=== PATIENT | male | born 1950 | race Caucasian/White ===

== ENCOUNTER → 2019-05-15 | Outpatient (CLI) | payer MEDICARE, OTHER, SELFPAY ==
[2019-04-29 13:48] VITALS: BMI 43.7
--- NOTE | 2019-05-15 13:14 | RAD_ITS ---
STUDY: X-RAY - LUMBAR SPINE REASON FOR EXAM: Male, 69 years old. LBP TECHNIQUE: 4 view(s) of the lumbar spine were obtained. COMPARISON: None FINDINGS: There is a AP view and 3 lateral views. AP view demonstrates levoscoliosis centered at the rudimentary ribs at the level of T12. There is multilevel disc space narrowing endplate sclerosis spondylosis. The neutral view demonstrates anterolisthesis at the level of L4-L5 that may measure up to 6.7 mm. On the extension view measures 6.4 mm an approximately the same on flexion. RAD/L/S Spine Comp/w Bending Views IMPRESSION: Approximately 6.5 mm anterolisthesis with degenerative change at L4-L5 without significant evidence of instability on flexion and extension. There is multilevel degenerative change of the lumbar spine. Electronically Signed: Jessi Schilling MD at 18:05 EST Tel , Service support ,
== END | disposition home or self-care (01) ==
PROVIDERS: Referring Provider Physician Assistant; Visit Provider Physician Assistant
DX: M54.5 Low back pain (principal)
CPT/HCPCS: 72114

== ENCOUNTER → 2020-11-17 13:39 | Outpatient (CLI) | payer MEDICARE, OTHER, SELFPAY ==
[2020-10-10 12:58] VITALS: BMI 43.7
--- NOTE | 2020-11-17 13:42 | CT_ITS ---
STUDY: CT LUMBAR SPINE WITHOUT CONTRAST REASON FOR EXAM: Male, 70 years old. Low back and left leg pain. RADIATION DOSAGE (If Supplied By Facility): CTDIvol = ( 61.40 ) mGy, DLP = ( 1830.17 ) mGycm TECHNIQUE: The patient was scanned in a multi detector CT scanner. High resolution transaxial imaging was performed. Images were obtained from L1 to S1 vertebral level. Sagittal and coronal images were reconstructed. Individualized dose optimization techniques were used for this CT. COMPARISON: Comparison is made with prior radiographs dated 10/10/2020. FINDINGS: Normal lumbar lordosis. Minimal levoscoliosis. Normal vertebrae of the lumbar spine. L1-2: There is a marked degree of disc space narrowing and disc degeneration with anterior osteophyte formation worse on the right side. Moderate degree of right neural foraminal stenosis. L2-3: Mild degree of disc space narrowing and disc degeneration. Moderate degree of facet joint osteoarthritis and hypertrophy with moderate bilateral neural foraminal stenosis. Minimal degree of central canal stenosis. L3-4: Moderate degree of disc space narrowing and disc degeneration. Moderate degree of bilateral neural foraminal stenosis as well as moderate degree of central canal stenosis due to the facet joint hypertrophy and ligamentum flavum hypertrophy. L4-5: Mild degree of the disc space narrowing. Mild anterior listhesis of L4 on L5. Marked degree of facet joint osteoarthritis and hypertrophy and diffuse posterior disc bulge causing a moderate degree of bilateral neural foraminal stenosis. Moderate to marked degree of central canal stenosis. L5-S1: Mild degree of disc space narrowing. Facet joint osteoarthritis. Mild degree of diffuse posterior disc bulge Atherosclerotic calcification of the abdominal aorta and iliac arteries. CT/Spine Lumbar without Contrast IMPRESSION: Multilevel degenerative changes, as described above. This is worse at the L3-L4 and L4-L5 levels. Electronically Signed: Jack Mueller MD at 14:54 EDT , Service support ,
== END ==
PROVIDERS: Referring Provider Orthopaedic Surgery; Visit Provider Orthopaedic Surgery
DX: M43.10 Spondylolisthesis, site unspecified (principal); M47.816 Spondylosis without myelopathy or radiculopathy, lumbar region
CPT/HCPCS: 72131

== ENCOUNTER → 2021-08-03 | Outpatient (CLI) | payer MEDICARE, OTHER, SELFPAY ==
--- NOTE | 2021-08-03 09:49 | STRESSREP ---
Stress Test Report Date: 08-03-2021 Procedure: Pharmacologic stress nuclear imaging study Indications: Shortness of breath/dyspnea on exertion; coronary artery calcification; paroxysmal atrial fibrillation; hypertension Consent: Per the patient Procedure: The patient underwent pharmacologic (Regadenoson 0.4mg ) evaluation with a peak heart rate of 98 beats per minute (66%predicted maximal heart rate) and a peak blood pressure of 162/98 mmHg. The baseline ECG demonstrated sinus rhythm; right bundle branch block pattern (rate related). The peak pharmacologic ECG demonstrated at a slower ventricular rate underlying sinus rhythm without the right bundle branch block pattern without acute ECG changes with a rare PVC. There was a rare PVC during infusion and recovery as well as during recovery at a higher ventricular rate the reappearance of sinus rhythm with a right bundle branch block pattern. There was no complaint of chest discomfort during pharmacologic infusion or recovery. The examination was discontinued secondary to completion of protocol. Impression: 1. Pharmacologic (Regadenoson) evaluation 2. Peak pharmacologic ECG with sinus rhythm without acute ECG changes and without the right bundle branch block pattern (appears to occur at an accelerated heart rate being compatible with a rate related bundle branch block pattern). 3. There was a rare PVC during infusion and recovery and at higher ventricular rates the appearance of sinus rhythm with a right bundle branch block pattern. 4. Nuclear images pending Myocardial perfusion imaging study: Technique: The patient was injected with 14.9 millicuries of technetium 99m Cardiolite and subsequently rest SPECT Cardiolite nuclear imaging was obtained in the horizontal long, vertical long, and short axis views. The patient underwent pharmacologic (Regadenoson) evaluation with a peak heart rate of 98 beats per minute (66% percent predicted maximal heart rate) and a peak blood pressure of 162/98 mmHg. The patient was injected with 44.8 millicuries of technetium 99m Cardiolite and subsequently stress SPECT Cardiolite nuclear imaging was obtained in the horizontal long, vertical long, and short axis views. A gated Cardiolite study at peak stress was obtained. Interpretation: Rest and stress SPECT Cardiolite nuclear imaging status post realignment, normalization, and attenuation correction demonstrate the appearance of an area of diminished myocardial perfusion/tracer uptake in portions of the mid inferolateral segments without significant change between rest and stress. There are similar type findings on the resting and stress polar map images. There is end systolic thickening and brightening. The gated Cardiolite study demonstrates myocardial thickening and inward wall motion. The reported LVEF is 69%. Impression: 1. Rest and stress SPECT Cardiolite nuclear imaging demonstrate the appearance of an area of diminished myocardial perfusion/tracer uptake in portions of the mid inferolateral segments without significant change between rest and stress appearing compatible with an area of previous myocardial injury/infarction without obvious post-rest related myocardial perfusion changes considered diagnostic for stress-induced myocardial ischemia. 2. The gated Cardiolite study reports an LVEF of 69%. This note was generated with [employer] software. It may contain incorrect words, spelling, and punctuation that were not noted in checking the note before signing.
== END | disposition home or self-care (01) ==
LOC: CVS 06:42
PROVIDERS: Referring Provider Nurse Practitioner Family; Visit Provider Nurse Practitioner Family
DX: R06.02 Shortness of breath (principal); R07.9 Chest pain, unspecified
CPT/HCPCS: 78452; 93017; A9500; A4216; J2785

== ENCOUNTER 2022-04-11 07:20 | Observation (INO) | payer MEDICARE, OTHER, SELFPAY ==
--- NOTE | 2022-03-29 16:27 | PCM.HP.BLA ---
History and Physical History and Physical [facility] Patient Name: Rodriguez Elliott : 1950 From:? ROSALIO MONTALVO PA-C? DATE OF SURGERY:? 04/11/2022 SCHEDULED PROCEDURE:? Left reverse total shoulder arthroplasty HISTORY OF PRESENT ILLNESS: Preoperative history and physical exam was performed on March 28, 2022.? This is a 72-year-old male who is been having ongoing pain in his left nondominant shoulder for several years.? Pain can reach as high as an 8/10 with activities.? Pain is located over the anterior and lateral left shoulder.? He has increased pain with any overhead motion as well as lifting and reaching behind his body.? He has had a previous right reverse total shoulder arthroplasty on May 17, 2017.? He states the pain does awaken him at night.? He states his symptoms are very similar on the left shoulder as they were on the right shoulder prior to surgery.? He does feel weaker on the left shoulder.? We are obtaining surgical clearance from primary care provider Dr. Felicita Kemp and the mine development engineer Dr. Blunt.? Patient reports recent stress test in the past 2-3 months.? Denies any chest pain or shortness of breath.? After failing conservative measures and discussing treatment options with Dr. Abiodun Osorio, the patient does wish to proceed with a left reverse total shoulder arthroplasty.? Patient has medical history pertinent for history of atrial fibrillation/atrial flutter, hypertension, anxiety/depression, and history of benign prostatic hyperplasia.? He denies previous DVT or pulmonary embolism. REVIEW OF SYSTEMS: Review Of Systems: Constitutional: Denies change in appetite, fever,or weight change. Cardiovasular: Denies chest pain, heart murmur and irregular heartbeat. Respiratory: Denies cough, pneumonia, shortness of breath, tuberculosis and wheezing. Gastrointestinal: Denies constipation, diarrhea, heartburn, nausea, rectal itching, bloody stools and vomiting. Genitourinary: Denies incontinence. Musculoskeletal: Admits to left ankle swelling and pain Skin: Denies Raynaud's, history of shingles and tattoo. Neurological: Reports numbness/tingling but denies ambulatory dysfunction, dizziness and tremor. Psychiatric: Reports anxiety and stress, but denies insomnia. Hematologic/Lymphatic: Denies anemia, bleeding/bruising tendency and past transfusion. Reviewed and updated. PAST MEDICAL HISTORY: Advance Care Plan: No Advance Directives Effective Date: 08/24/2016 Past Medical History: Medical Problems: Depression, High Blood Pressure, Covid-19 Vaccinated Accidents: LT Ankle FX Surgical Hx: RT Knee Arthroscopy Carpal Tunnel Release RT - (11/13/2016) [email or web address] RT Total Shoulder Reverse - (05/07/2017) [email or web address] RT TKR - (01/27/2019) SAW @ [facility] LT TKR - (06/02/2019) SAW @ [facility] Cataracts - BILAT Knee Replacement LT Anesthesia Complications: None Assistive Devices: Glasses - readers Reviewed and updated. SOCIAL HISTORY: Social History: Marital: .Occupation: Retired.Work Status: Retired.Hand Dominance: Right-handed. Personal Habits:? Cigarette Use: Never Smoked Cigarettes.Smokeless Tobacco: Never Used Smokeless Tobacco.E-Cigarette Use: Never used.Alcohol: Denies use.Drug Use: Denies Use.Enjoy Exercising: Never Exercises. Reviewed, no changes. VITALS: Ht: 68.5 Wt: 302lb Wt k.987 BMI: 45.2 BP: 146/82 Pulse: 67 Resp: 18 T: 98.3 T: 36.8C Pain Level: 2 O2SatR: 96 ALLERGIES: No Known Drug Allergy? MEDICATIONS: Sertraline HCL 100 mg, Metoprolol Succinate ER 50 mg 1po qday`, Tamsulosin HCL 0.4 mg take 1 capsule by mouth every day, Lisinopril-Hydrochlorothiazide 20-12.5 mg 1 tab by mouth daily, Aspirin Adult 325 mg 1 by mouth every day, Meloxicam 15 mg 1/2po bid PRE-OP EXAM:? General appearance:NORMAL? ? ? Other: Eyes: Conjunctivae and lids: NORMAL? Pupils: ERR Ears, Nose, Mouth, and Throat: NORMAL? Other: Inspection of lips, teeth and gums: NORMAL? ?Other: Neck: Examination of neck: no masses noted. Respiratory: Assessment of respiratory effort: NORMAL? ?Other: ?Auscultation of lungs: clear to auscultation no wheezes, rhonchi or rales. Cardiovascular:? Auscultation of heart: regular rate and rhythm, no murmurs, gallops or rubs. PHYSICAL EXAMINATION: On exam the left shoulder it is cool to touch without erythema or signs of infection.? He has tenderness to palpation over the anterior and lateral shoulder.? He has diffuse pain with range of motion.? He does get crepitus with range of motion.? Forward elevation 70 actively.? Internal rotation to the belt line.? External rotation to neutral.? He has increased pain with supraspinatus testing.? Sensation intact to light touch in axillary, radial, median, ulnar nerve distribution. IMAGING STUDIES: Previous x-rays of left shoulder revealed complete loss of glenohumeral joint space with subchondral sclerosis, subchondral cyst formation with central and posterior glenoid erosion. IMPRESSION: 1.? Severe left shoulder glenohumeral osteoarthritis 2.? 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 History of atrial fibrillation/atrial flutter 4.? Hypertension 5.? Anxiety/depression 6.? History of benign prostatic hyperplasia PLAN: Dr. Abiodun Osorio did discuss and review with the patient all treatment options including surgical versus nonsurgical options.? Patient does wish to proceed with the above-stated procedure.? Potential risks, benefits, and complications of the procedure were discussed in detail including but not limited to , infection, nerve and blood vessel damage, persistent pain, numbness, tingling, paresthesias, blood clot, pulmonary embolism, and requirement for possible further surgery.? The patient expressed full understanding and has no further questions for the doctor.? Patient does agree to proceed with the above-stated procedure and has signed the surgery consent form. We discussed the current risks associated with COVID 19.? This does include the risk of exposure while in the hospital.? Patient was reassured local hospitals have low infection rates and are taking all necessary precautions to avoid exposure to patients.? In addition, we discussed strategies that can be used to help limit exposure including those that limit the patient's time in the hospital.? Also using strategies to limit the patient's need for continued inpatient services after being discharged from the hospital.? Patient was notified that we will need to comply with any screening or testing the hospital wishes to perform or that surgery may be delayed for any positive results. This dictation was created using voice recognition software. Phonetic and/or grammatical errors may exist. ___? I have re-examined the patient.? There are no clinical changes since date of exam. ___? See progress notes for changes. ___? Dictated on admission Date: ? ? ?Time: Signature:
--- NOTE | 2022-04-05 12:00 | EKG12_ITS ---
Test Reason : PREOP Blood Pressure : / mmHG Vent. Rate : 066 BPM Atrial Rate : 066 BPM P-R Int : 188 ms QRS Dur : 108 ms QT Int : 412 ms P-R-T Axes : 000 -21 014 degrees QTc Int : 431 ms Normal sinus rhythm Normal ECG Confirmed by SAMANTHA ROCA, LLOYD ([id number]), tape editor GRAHAM ONEIL ([id number]) on 04/06/2022 6:21:38 AM Referred By: Abiodun Osorio Confirmed By:NEDA SINGH MD
[2022-04-05 13:07] LABS: Absolute Lymphocyte Count 2.24 X10^3/uL (0.83-4.51); Absolute Neutrophil Count 4.6 X10^3/uL (2.0-7.7); Basophil# 0.06 X10^3/uL; Basophil% 0.7 % (0-1); Eosinophil# 0.27 X10^3/uL; Eosinophils% 3.4 % (0-5); Hematocrit 39.6 % (40-54); Hemoglobin 13.3 g/dL (13.0-16.5); Lymphocyte # 2.24 X10^3/ul (0.83-4.51); Mean Corp Hgb Conc 33.6 g/dL (32-36); Mean Corpuscular Hgb 29.7 pg (27.0-32.0); Mean Corpuscular Volume 88.4 fL (80-94); Mean Platelet Vol. 10.6 fl (6.2-12.0); Monocyte# 0.77 X10^3/uL; Monocyte% 9.6 % (0-10); NRBC Flagged by Analyzer 0 % (0-5); Neutrophil # 4.63 X10^3/uL (2.7-7.7); Neutrophil % 57.8 % (47-70); Platelet Count 218 K/mm3 (150-450); RBC Distribution Width CV 13.9 % (11.6-14.6); RBC Distribution Width SD 45.1 fl (35.1-43.9); Red Blood Count 4.48 M/mm3 (4.6-6.2)
[2022-04-05 13:48] LABS: Magnesium 2.1 mg/dL (1.6-2.6)
[2022-04-05 13:50] LABS: Albumin, Serum 3.7 g/dL (3.2-5.0); Anion Gap 6 (5-15); BUN 24 mg/dL (7-18); BUN/Creat Ratio 34.7 RATIO (10-20); Calcium,Total 9.5 mg/dL (8.5-10.1); Chloride 105 mmol/L (98-107); Creatinine, Serum 0.69 mg/dL (0.70-1.30); EST Glomerular Filtration Rate 119 mL/min (>60); Est Glom Filt Rate - Afr Amer 144 mL/min (>60); Glucose 100 mg/dL (74-106); Sodium Level 138 mmol/L (136-145)
[2022-04-05 14:11] LABS: Hemoglobin A1c 5.9 % (3.8-5.6)
[2022-04-11] VITALS (15 sets, daily range): BP systolic 89–151; BP diastolic 45–74; PULSE 60–100; RESP 16–19; TEMP 36.2–36.7; O2SAT 90–95; BMI 45.6
[2022-04-11 06:45] LABS: Bedside Glucose 95 mg/dL (74-106)
[2022-04-11] MEDS: Lactated Ringers 1,000 ML 999 ML IV ×2 (06:52→10:20)
[2022-04-11] MEDS: Acetaminophen 500 MG Tablet 1000 MG PO ×3 (06:52→21:13)
[2022-04-11] MEDS: Gabapentin 600 MG Tablet PO (06:52)
[2022-04-11] MEDS: Celecoxib 200 MG Capsule 400 MG PO (06:52)
--- NOTE | 2022-04-11 07:16 | PCM.OPRPT ---
Report of Operation Date of Procedure: 04/11/22 Pre-Operative Diagnosis: Left shoulder osteoarthritis with rotator cuff insufficiency Post-Operative Diagnosis: Left shoulder osteoarthritis with rotator cuff insufficiency Surgery/Procedure Performed:: Left reverse total shoulder replacement Description of Surgical Findings:: Stable shoulder Surgeon: Abiodun Osorio cafe manager: Eddie Coats Type of Anesthesia: General Anesthesiologist: Dhiraj Russell Special Medications: 2 g Ancef, 1 g TXA at incision, 1 g TXA closure, 10 mg Decadron, joint cocktail (5 mg Duramorph, 30 mL of 0.5% Ropivicaine, 1000 units of epinephrine, 30 mg of Toradol), 1.5 g vancomycin at incision Specimen's removed: Bony cuts Estimated Blood Loss (mL): 200 Fluids Replaced: 1000 ml crystalloid Description of Procedure: Components used 1. [place] reunion glenoid baseplate 2. [place] reunion 36 mm, eccentric 2 mm Glenosphere 3. [place] reunion 36mm, 4mm humeral liner 4. [place] reunion reverse TSA humeral adapter tray 2mm 5. [place] reunion humeral stem primary press-fit 16mm size Brief history/Operative indications: 72 yo m with history of left shoulder pain and cuff tear arthropathy. Patient failed conservative measures as mentioned in the H&P. After discussion of risk and benefits of reverse total shoulder replacement including but not limited to blood loss, DVTs, PEs, nerve vessel damage, infection, general risk of anesthesia including loss of life, instability and stiffness patient demonstrating understanding wish to proceed was able to sign informed consent. Medical clearance was obtained. Procedure: On the date of the procedure, patient's left upper extremity was marked in the preoperative area. Patient was taken back to the operating room where they were placed on the table in the supine position. Anesthesia assumed control of the C-spine and airway, then administered anesthetic. All bony prominences were identified well-padded, the head was secured and the patient was placed in the beachchair position at about 35? inclination. Anesthesia remained in control of the C-spine airway throughout the remainder of the procedure. Patient was then appropriately fastened to the table and the left upper extremity was prepped in a sterile fashion. The surgeons then scrubbed. Upon reentering the room, the left upper extremity was draped in a sterile fashion and the incision was marked out. Timeout was called, everyone agreed upon the side, the site, the procedure to be performed, patient identity and antibiotics given. Incision was taken down through skin and subcutaneous tissue, fat down to fascia. The stripe of the deltopectoral interval and cephalic vein were identified and blunt dissection was used to retract the deltoid. The cephalic vein was retracted laterally. Clavipectoral fascia was then incised and a cobra retractor was placed in the wound. The proximal one third of the pectoralis major insertion was released. Pectoralis tendon insertion was used to tenodesed the biceps tendon which was identified in the bicipital groove. Tenodesis was done with #1 Vicryl. Proximally we followed the biceps tendon after transecting it into the rotator interval. The rotator interval was split and the arm was externally rotated. The split was 1 cm medial to the bicipital groove. Subscapularis tendon was released. We released down the anterior portion of the humeral head and a wooten elevator was used to release the inferior portion of the humeral head. The arm was externally rotated and the shoulder was dislocated. The humeral head was then cut at its natural retroversion. Once his humeral head cut was made humerus was retracted out of the way and the glenoid was exposed. After exposing the glenoid, the labrum and the remaining proximal biceps were debrided. At this time we are able to view the entire outer edge of the glenoid. A central pin was placed we sequentially reamed over this central pin to 36mm. Once this was completed the central screw was measured and found to be. The glenoid baseplate was screwed into place. Wound was closely irrigated out with normal saline we then drilled sequentially for 2 screws. Screws were placed superiorly and inferiorly and tightened down the screws. Once the screws were appropriately tightened into place the glenoid baseplate was compressed against the exposed subchondral bone. A 36mm glenosphere was impacted into place engaging the Bello taper. Attention was then turned towards the humerus. The humerus was again externally rotated exposing the proximal portion of the humerus. Central canal finder was then used to open up the canal. We reamed to a 16mm reamer. We then broached to a 16mm stem. We trialed the 4mm liner, with the 2mm humeral baseplate. We obtained an adequate reduction at this time with a nice stable shoulder. Good internal rotation to the gluteus, forward elevation to 140?, external rotation to 20?. Final components were then assembled on the back table, trials were removed and the wound was copiously irrigated with normal saline after dislocating the shoulder. Once the final components were assembled they were impacted into place. Shoulder was then reduced and found to be stable with good range of motion. Subscapularis tendon was repaired using #1 FiberWire. The wound was with chlorhexidine solution then copiously irrigated out with a 1 L normal saline lavage. The deltopectoral fascia was then closed using #1 Vicryl skin was closed using 2-0 Vicryl interrupted sutures and final skin closure was done with 3-0 Monocryl. Steri-Strips are placed for final skin closure. Sterile dressing was placed patient was then placed in a sling and awakened by anesthesia. Patient was then transferred to the PACU for recovery. Postoperative plan: Patient will be admitted to the hospital overnight. They will get physical therapy starting in 2 weeks with normal postoperative regimen. Patient will be placed on 325 mg aspirin twice daily for DVT prophylaxis (patient normally is prescribed 325 mg daily so we maintain this dose). The first postoperative appointment will be in 2 weeks for wound check and initiation of phase 1 physical therapy. During the course of the procedure the physician day care assistant played a vital role. His intimate knowledge of my steps in the procedure aided in safe and expedient completion of the procedure. The PA played a vital rolls in positioning particularly in obtaining the appropriate beach chair position and securing the patient's body and head to the table. The PA was also vital in the retraction of soft tissues during the exposure and especially the glenoid work as this is a vital part of the procedure to prevent neurovascular damage. the PA was also vital and protecting soft tissues during times of bony cuts and reaming. He also played a vital role in closure with my direct supervision. The PA was also important during reduction and dislocation of the joint and trials intraoperatively. Complications No intraoperative complications Admit VTE Documentation VTE Present on Admission: No VTE Mechan Device Prophylaxis: SCD's VTE Pharm Prophylaxis ordered?: Yes
--- NOTE | 2022-04-11 07:21 | RAD_ITS ---
HISTORY: post op -- AP and Lateral X-Ray of operative shoulder in PACU. TECHNIQUE: XR Shoulder Min 2 Views. COMPARISON: None. FINDINGS: BONES : No acute fracture identified. Mineralization unremarkable. JOINTS: Reversed left shoulder arthroplasty without dislocation. Mild acromioclavicular degenerative change. SOFT TISSUES: Dependent atelectasis or consolidation in the left lung base with low lung volumes. Expected air and edema in the surrounding soft tissues. RAD/Shoulder min 2 Views IMPRESSION: Satisfactory postoperative alignment of left shoulder arthroplasty. Electronically Signed: Janee Girard MD at 10:58 EST ,
--- NOTE | 2022-04-11 08:00 | SHO_PTH ---
PATIENT: HAILE HUMPHRIES LOC: [id number] U#:[id number] AGE/SX: 72/M [place] [facility] [place]: Dr. Abiodun Osorio MD : 1950 BED: 1 DIS: 04/12/2022 SPEC #: [id number] RECD: 04/11/22 13:42 STATUS: RAMU REQ #: [id number] CAILIN: 04/11/22 08:[address]: Abiodun Osoroi DEPT: SURGICAL PATHOLOGY RECD BY: Nathalie Buitrago ENTERED: 04/12/22 09:57 SP TYPE: HUMERUS OTHR DR: MD Dr. Felicita Mahoney DO Tissues: Humerus, NOS Procedures: Decalcification bone/plaque Surgery Specimen Level IV HEADER OPERATION: ERAS, total shoulder replacement, reverse PRE-OP DIAGNOSIS: Severe left shoulder glenohumeral osteoarthritis TISSUE SUBMITTED: Left shoulder bone MICROSCOPIC DIAGNOSIS Left shoulder bone, total shoulder replacement/resection: Humeral head with degenerative osteoarthritic changes. LC:[email or web address] 04/18/2022 MICROSCOPIC DESCRIPTION Slides are reviewed. GROSS DESCRIPTION Received is one container labeled with the patient's name and designated left shoulder bone. The specimen consists of a humeral head measuring 5 x 5 x 2.5 cm. The articular surface shows areas of erosion, eburnation and osteophyte formation. No soft tissue is identified. Treatment Plant Mechanic sections are submitted in one cassette after decalcification. / LC:jessica 04/12/2022 TC:5 CPT: 97270, 80778
[2022-04-11] MEDS: TXA 1000mg in NS100 100ml (IVPB at Incision) 660 MG IV (08:30)
[2022-04-11] MEDS: dexAMETHasone 10 MG/ML Vial IV (08:30)
[2022-04-11] MEDS: TXA 1000mg in NS100 100ml (IVPB at Closure) 660 MG IV (09:15)
--- NOTE | 2022-04-11 11:11 | SUR.PHASEI ---
SPOKE WITH DR KRAFT REGARDING BLOOD PRESSURE. PATIENT TOOK METOPROLOL THIS MORNING, DR KRAFT COMFORTABLE WITH PRESSURES, NO NEW ORDERS RECEIVED AT THIS TIME.
[2022-04-11] MEDS: Lactated Ringers 1,000 ML 125 ML IV (11:22)
--- NOTE | 2022-04-11 14:02 | PCM.PN.HOSP ---
Subjective Subjective The patient is a 72 y/o M w/ PMHx: PAF/Flutter, HTN, HLD, Anxiety and Depression, Morbid Obesity, BPH who presents to the [facility] on 04/11/22 secondary to ongoing debilitating L shoulder pain despite conservative outpatient interventions and therapies with history of prior similar issues with his R shoulder now s/p R reverse total shoulder arthoplasty with planned L reverse total shoulder arthroplasty per Dr. Osorio. Hospitalist consultation requested for medication management. Patient currently doing well and denies any pain however block is still in place completely. He notes he did not have much pain when his other shoulder was replaced either. He notes intention to perform outpatient therapies. Patient denies fevers, chills, nausea, emesis, abdominal pain, chest pain or dyspnea. Objective Data Objective Data Vital Signs: Vital Signs Temp Pulse Resp BP Pulse Ox O2 Del Method O2 Flow Rate 97.5 F L 71 19 H 128/60 H 92 Nasal Cannula 2 04/11/22 12:30 04/11/22 12:30 04/11/22 12:30 04/11/22 12:30 04/11/22 12:30 04/11/22 12:30 04/11/22 12:30 Oxygen Flow Rate (L/min) 2 Oxygen Delivery Method Nasal Cannula Weight: 299 lb 13.259 oz Body Mass Index (BMI) 45.6 Intake & Output: Intake and Output for Last 24 Hours 04/09/22 04/10/22 04/11/22 23:59 23:59 23:59 Intake Total 3437 / 3437 Balance 3437 / 3437 Lab / Micro Data Result Diagrams: 04/05/22 11:40 04/05/22 11:40 Labs: Laboratory Results - last 24 hr 04/11/22 06:24: POC Glucose 95 Micro: Microbiology 04/05/22 11:40 Swab (Method) Nasal Screen MRSA/MSSA - Final Radiography Diagnostic Testing: Radiology Impression Shoulder X-Ray 04/11/22 07:21 IMPRESSION: Satisfactory postoperative alignment of left shoulder arthroplasty. Electronically Signed: Janee Girard MD at 10:58 EST Reading Location ID and State: [facility] / [place] Tel , Service support , Physical Exam Narrative Physical Examination: General: Awake, alert, oriented x 3 and cooperative, seated upright in MS bed in no apparent distress. Skin: Normal color, normal turgor, no icterus, no cyanosis except for recent ORIF of left reverse total shoulder, dressings in place, no drainage. HEENT: AT/NC, EOMI, PERRLA, mildly dry MM, no carotid bruits or JVD noted. Lungs: Mildly diminished, greater bases, poor effort, no rales, ronchi or wheezing. Heart: Regular rate and rhythm; no gallop, rub audible. Abdomen: Soft, morbidly obese, NTTP, ND, mildly hyperactive BS, no HSM. Extremities: No cyanosis, clubbing, or edema, status post OR with left total reverse shoulder, dressings in place, no drainage, peripheral pulses intact, block still effective. Neurological: Patient awake, alert, oriented as noted, cognitive function intact; pupils equally reactive to light and accommodation, cranial nerves II-XII grossly normal, moving extremities except left upper extremity which is expected given recent block status post OR, strength accordingly moderately to severely global decreased but improving. Psychiatric: Affect appears mildly fatigued otherwise normal, no acute evidence of depressive or anxiety feelings. Assessment & Plan Assessment/Plan (1) Osteoarthritis, shoulder: PLAN: Plan The patient is a 72 y/o M w/ PMHx: PAF/Flutter, HTN, HLD, Anxiety and Depression, Morbid Obesity, BPH who presents to the [facility] on 04/11/22 secondary to ongoing debilitating L shoulder pain now s/p L reverse total shoulder arthroplasty per Dr. Osorio. #1. 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 Osorio, now status post left reverse total shoulder replacement, post-operative pain management, bowel regimen, DVT Prophylaxis, PT/OT/CM per Orthopedic surgery discretion. #2. PAF/Flutter: Following with Dr. Blunt, cleared for OR with noted unremarkable stress test 2 to 3 months prior to current presentation, we will continue patient on metoprolol regimen, not chronically anticoagulated, maintain on aspirin. #3. Hypertension: Continue home regimen including metoprolol, lisinopril, hydrochlorothiazide, PRN hydralazine. #4. Hyperlipidemia: Not on regimen, defer to outpatient. #5. Anxiety depression: We will continue patient home sertraline regimen. #6. BPH: We will continue patient home Flomax regimen. #7. Morbid Obesity: Weight loss and lifestyle changes encouraged. #8. DVT prophylaxis: SCDs, chemoprophylaxis per surgery discretion given recent OR. Admission Evaluation Time spent evaluating chart, patient history, patient evaluation, care planning and discussion with specialists: 50 minutes. Charges/Coding Visit Charges Inpatient E&M: 98685 [facility] Hosp L3
[2022-04-11] MEDS: Cefazolin 1 GM/50 ML BAG IV ×2 (17:03→23:21)
[2022-04-11] MEDS: Ensure Surgery 237 ML LIQUID PO (17:09)
[2022-04-11] MEDS: Metoprolol(XL)Succ 50 MG Tablet PO (21:13)
[2022-04-11] MEDS: Tamsulosin HCl 0.4 MG Capsule PO (21:13)
[2022-04-11] MEDS: Aspirin 325 MG Tablet PO (21:15)
[2022-04-11] MEDS: 0.9% Saline Lock 10 ML Syringe IV (23:21)
[2022-04-12] MEDS: Famotidine 20 MG Tablet PO (00:29)
[2022-04-12] MEDS: oxyCODONE 5 MG Tablet PO ×3 (00:29→08:43)
[2022-04-12 01:04] VITALS: BP 140/80; PULSE 98; RESP 18; TEMP 36.9; O2SAT 94
[2022-04-12 05:04] VITALS: BP 127/94; PULSE 83; RESP 16; TEMP 36.6; O2SAT 95
[2022-04-12] MEDS: Acetaminophen 500 MG Tablet 1000 MG PO (05:18)
[2022-04-12 06:22] LABS: Hematocrit 37.4 % (40-54); Hemoglobin 12.5 g/dL (13.0-16.5); Mean Corp Hgb Conc 33.4 g/dL (32-36); Mean Corpuscular Hgb 29.7 pg (27.0-32.0); Mean Corpuscular Volume 88.8 fL (80-94); Mean Platelet Vol. 10.7 fl (6.2-12.0); Platelet Count 231 K/mm3 (150-450); RBC Distribution Width CV 13.8 % (11.6-14.6); RBC Distribution Width SD 45.1 fl (35.1-43.9); Red Blood Count 4.21 M/mm3 (4.6-6.2); White Blood Count 13.8 K/mm3 (4.4-11.0)
[2022-04-12 07:00] VITALS: O2SAT 94
[2022-04-12 07:02] LABS: Anion Gap 5 (5-15); BUN 21 mg/dL (7-18); BUN/Creat Ratio 25.2 RATIO (10-20); Calcium,Total 9.1 mg/dL (8.5-10.1); Chloride 103 mmol/L (98-107); Creatinine, Serum 0.83 mg/dL (0.70-1.30); EST Glomerular Filtration Rate 96 mL/min (>60); Est Glom Filt Rate - Afr Amer 116 mL/min (>60); Estimated Creatinine Clearance 76.69 ml/min; Glucose 154 mg/dL (74-106); Potassium 3.8 mmol/L (3.5-5.1); Sodium Level 136 mmol/L (136-145)
[2022-04-12 07:42] VITALS: BP 126/69; PULSE 76; RESP 18; TEMP 36.4; O2SAT 93
[2022-04-12] MEDS: Ensure Surgery 237 ML LIQUID PO ×2 (07:51→11:58)
[2022-04-12] MEDS: hydroCHLOROthiazide 12.5mg 12.5 MG PO (08:42)
[2022-04-12] MEDS: Tamsulosin HCl 0.4 MG Capsule PO (08:42)
[2022-04-12 08:43] VITALS: PULSE 76
[2022-04-12] MEDS: Senna/Docusate Sodium 1 Tablet 2 TABLET PO (08:43)
[2022-04-12] MEDS: Metoprolol(XL)Succ 50 MG Tablet PO (08:43)
[2022-04-12] MEDS: Sertraline 100 MG Tablet PO (08:43)
[2022-04-12] MEDS: Lisinopril 20 MG Tablet PO (08:43)
[2022-04-12] MEDS: Aspirin 325 MG Tablet PO (08:45)
--- NOTE | 2022-04-12 09:06 | PN.HOSP_ITS ---
Subjective Subjective Follow-up after reverse, left shoulder total replacement Objective Data Objective Data Vital Signs: Vital Signs Temp Pulse Resp BP Pulse Ox O2 Del Method O2 Flow Rate 97.6 F L 76 18 126/69 H 93 Room Air 2 04/12/22 07:42 04/12/22 08:43 04/12/22 07:42 04/12/22 07:42 04/12/22 07:42 04/12/22 07:42 04/11/22 12:30 Oxygen Flow Rate (L/min) 2 Oxygen Delivery Method Room Air Weight: 299 lb 13.259 oz Body Mass Index (BMI) 45.6 Intake & Output: Intake and Output for Last 24 Hours 04/10/22 04/11/22 04/12/22 23:59 23:59 23:59 Intake Total 5067 / 5067 Balance 5067 / 5067 Lab / Micro Data Result Diagrams: 04/12/22 04:42 04/12/22 04:42 Labs: Laboratory Results - last 24 hr 04/12/22 04:42: WBC 13.8 H, RBC 4.21 L, Hgb 12.5 L, Hct 37.4 L, MCV 88.8, MCH 29.7, MCHC 33.4, RDW Std Deviation 45.1 H, RDW Coeff of Lynette 13.8, Plt Count 231, MPV 10.7 04/12/22 04:42: Sodium 136, Potassium 3.8, Chloride 103, Carbon Dioxide 28.0, Anion Gap 5, BUN 21 H, Creatinine 0.83, Estim Creat Clear Calc 76.69, Est GFR (MDRD) Af Amer 116, Est GFR (MDRD) Non-Af 96, BUN/Creatinine Ratio 25.2 H, Glucose 154 H, Calcium 9.1 Micro: Microbiology 04/05/22 11:40 Swab (Method) Nasal Screen MRSA/MSSA - Final Radiography Diagnostic Testing: Radiology Impression Shoulder X-Ray 04/11/22 07:21 IMPRESSION: Satisfactory postoperative alignment of left shoulder arthroplasty. Electronically Signed: Janee Girard MD at 10:58 EST , Physical Exam Narrative Physical exam General: Alert, Oriented x3, Cooperative, morbid obesity BMI 45.6 kg/m? HEENT: Atraumatic, PERRLA, EOMI, Normocephalic Oral: Oral mucosa moist no Gingival or Mucosal Lesions/ Ulcerations Neck: Supple, No JVD, Negative Carotid Bruits Lungs: Air entry diminished in bilateral lung bases. No crepitation/rhonchi Cardiovascular: Regular rate, Regular Rhythm, Normal S1, Normal S2, No murmurs Abdomen: Bowel Sounds Present, Soft, Non Tender, Non-Distended : No renal angle tenderness. No suprapubic tenderness. Extremities: No edema, Capillary Refill Less than 3 Seconds Skin: No rashes, No breakdown Musculoskeletal: Left shoulder reverse total replacement. Surgical dressing is dry. On sling and swath. No Tenderness to Palpation of other joints or Extremities Neurological: Cranial nerves II-XII grossly intact, DTR 2+/4 and Symmetrical, Neuro grossly intact Psych/Mental Status: Normal Affect, Appropriate. Assessment & Plan Assessment/Plan (1) Status post reverse total arthroplasty of left shoulder: PLAN: Plan The patient is a 72 y/o M WAS SEEN POSTOP FOR LEFT reverse total shoulder arthroplasty per Dr. Osorio. #1. 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 Osorio, therefore had elective left reverse total shoulder replacement on 04/11/2022. Patient has mild pain and required oxycodone. PT and OT on board. Patient is medically stable to be discharged today. #2. PAF/Flutter: Patient follows Dr. Blunt. Patient had unremarkable stress test 2 to 3 months prior to current presentation, continue patient on metoprolol regimen, not chronically anticoagulated, maintain on aspirin. #3. Hypertension: Continue home regimen including metoprolol, lisinopril, hydrochlorothiazide. #4. Hyperlipidemia: Not on regimen, defer to outpatient. #5. Anxiety depression: We will continue patient home sertraline regimen. #6. BPH: We will continue patient home Flomax regimen. #7. Morbid Obesity: Weight loss and lifestyle changes encouraged. #8. DVT prophylaxis: SCDs, chemoprophylaxis per surgery discretion given recent OR. Patient is medically stable for discharge and follow with Dr. 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 Moodispaw. Charges/Coding Visit Charges Inpatient E&M: 73763 Subs Hosp L2
--- NOTE | 2022-04-12 10:50 | CASEMGMT ---
KAMLESH WEEKS DC Planning Assessment: Face to Face with patient for initial transition planning/care coordination assessment. Pt sitting up in chair, alert, oriented x4 and agreeable to participating in assessment. Pt's also present. KAMLESH WEEKS introduced self and role at [facility], pt voiced understanding. Care providers, pharmacy, and demographics verified. Admitting dx: Left total shoulder replacement reverse PCP: Viridiana Specialists: Jo (ortho), Merlene (cardiology), Oliva Dey (dermatology) Preferred Pharmacy: [facility] Insurance: [facility] A/B, Physician [place] Prescription Benefit: No, uses discount cards Living Will/HPOA: None LNOK: [place] Living Arrangements: Pt lives in a split level home with 7 steps to go up and 7 steps to go down the different levels of the home. There are handrails bilaterally. Pt denies any concerns with navigating these stairs at discharge. Pt resides with his and adult son who are both able to assist as needed. Pt is independent with ADLs at baseline. Pt does go to the [facility] in [place] for pool therapy. Transportation: Pt's is able to assist with transportation DME: shower chair, raised toilet seat, grab bars, hand held shower, two walkers, can for outside the home, and two lift chairs. Pt states he has had his right shoulder replaced and bilat knee replacements and has the necessary equipment to assist him in the home. SNF/HHC: denies any previous providers Plan: Pt plans to return home with the support of his family. States he will await the two week recovery and after his follow-up appointment has arranged to attend outpt tx at [facility]. States he may switch to On-site Therapy services at the [facility]. Sparkle Watson RN CM
[2022-04-12] MEDS: Doxycycline 100 MG CAPSULE PO (11:58)
--- NOTE | 2022-04-12 12:12 | PN.ORTHO_ITS ---
Subjective Subjective The patient was sitting in bedside chair with his upon examination. Patient denies any chest pain, shortness of breath, dizziness, lightheadedness, nausea or vomiting, or calf pain. Pain is controlled on medications. No adverse overnight events. Patient overall is doing well today. He did require some pain medications. He states this has been a little more painful than his other right reverse total shoulder arthroplasty that took place in 2018. He denies numbness and tingling. Therapies have worked with him already. Objective Data Objective Data Vital Signs: Vital Signs Temp Pulse Resp BP Pulse Ox O2 Del Method O2 Flow Rate 97.6 F L 76 18 126/69 H 93 Room Air 2 04/12/22 07:42 04/12/22 08:43 04/12/22 07:42 04/12/22 07:42 04/12/22 07:42 04/12/22 07:42 04/11/22 12:30 Oxygen Flow Rate (L/min) 2 Oxygen Delivery Method Room Air Weight: 136 kg Body Mass Index (BMI) 45.6 Intake & Output: Intake and Output for Last 24 Hours 04/10/22 04/11/22 04/12/22 23:59 23:59 23:59 Intake Total 5067 / 5067 Balance 5067 / 5067 Lab / Micro Data Result Diagrams: 04/12/22 04:42 04/12/22 04:42 Labs: Laboratory Results - last 24 hr 04/12/22 04:42: WBC 13.8 H, RBC 4.21 L, Hgb 12.5 L, Hct 37.4 L, MCV 88.8, MCH 29.7, MCHC 33.4, RDW Std Deviation 45.1 H, RDW Coeff of Lynette 13.8, Plt Count 231, MPV 10.7 04/12/22 04:42: Sodium 136, Potassium 3.8, Chloride 103, Carbon Dioxide 28.0, Anion Gap 5, BUN 21 H, Creatinine 0.83, Estim Creat Clear Calc 76.69, Est GFR (MDRD) Af Amer 116, Est GFR (MDRD) Non-Af 96, BUN/Creatinine Ratio 25.2 H, Glucose 154 H, Calcium 9.1 Micro: Microbiology 04/05/22 11:40 Swab (Method) Nasal Screen MRSA/MSSA - Final Physical Exam Narrative Vital signs stable, afebrile SCDs and VIELKA hose are in place bilaterally Dressing is clean, dry, intact Ultra-sling fitting appropriately Sensation intact to axillary, radial, median, and ulnar distribution Motor intact to AIN, PIN, and ulnar nerve. Const alert, oriented x3 and no apparent distress Assessment & Plan Assessment/Plan (1) Status post reverse total arthroplasty of left shoulder: PLAN: 1. S/P left reverse total shoulder arthroplasty POD #1 2. Continue Pain Medications: Tylenol and oxycodone 3. DVT Prophylaxis: Aspirin 325 mg twice daily with food for 2 weeks postoperatively. After 2 weeks he can go back to his normal aspirin 325 mg daily. 4. PT/OT: Continue with UltraSling at all times except to come out for range of motion exercises of the elbow and pendulum exercise 3 times daily. No range of motion of the postoperative shoulder until outpatient physical therapy begins. Outpatient physical therapy will begin 2 weeks postoperatively after follow-up with [facility] with x-rays and incision check. 5. H & H: 12.5/37.4, asymptomatic. Postoperative anemia secondary to acute blood loss from surgery without any intra operative complications. 6. Reactive leukocytosis: Currently 13.8, afebrile. Patient did receive Decadron intraoperatively 7. Continue antibiotics for 2 weeks postoperatively due to elevated BMI: Will be on doxycycline for 2 weeks postoperatively. Patient was instructed on potential side effects of this medication including increased sensitivity to sunlight and should take appropriate precautions. Also recommend taking probiotics while on the antibiotic. Patient voiced understanding agreement. 8. Continue postoperative management per medicine: Patient does have underlying benign prostatic hyperplasia and currently takes tamsulosin. He has been able to void on his own several times. 9. Encouraged Incentive Spirometry 10. Disposition: Plan will be for discharge home today as patient is medically stable and overall doing well. His pain is well controlled. Patient does have outpatient physical therapy established to begin at 2-week postoperative visit. He will follow-up per postop instructions. He would like his prescriptions E scribed to [facility] in [facility]. He was instructed to contact her office upon discharge with any concerns or questions. I have reviewed the [place] Automated Rx Reporting System (OARRS) report for this patient for refill pattern and other prescriber involvement as part of the appropriate surveillance for the provision of acute and chronic controlled medications. The report was requested and reviewed on the date of this entry and was considered in the prescribing process. This dictation was created using voice recognition software. Phonetic and/or grammatical errors may exist.
--- NOTE | 2022-04-12 12:16 | DCINST_ITS ---
Discharge Instructions Diet Discharge Diet: No restrictions Activity Discharge Activity: May Not Drive (No driving for 6 weeks postoperatively while wearing UltraSling.) Ice area for (Minutes): 20 (Every 1-2 hours while awake[address] barrier between skin and ice pack.) Weight Bearing Status: No weight bearing (Postoperative upper extremity) Additional Activity Instructions:: Continue with UltraSling at all times. Please come out of UltraSling 3 times daily working on elbow range of motion and pendulum exercises. No range of motion of postoperative shoulder. Will begin outpatient physical therapy after 2-week scheduled follow-up. Dressing / Incision Call your doctor if your incision/area has: Continuous Slow Oozing, Sudden Increased Bleeding, Increased Pain/ Swelling, Increased Redness and Foul Smelling Discharge Call your doctor if you observe: Fever of 101 or Higher, Shortness of breath, Chest pain and Uncontrolled pain Remove Dressing in: 4 days (Okay to remove dressing on April 16, 2022) Additional Dressing/Incision Instructions:: Follow [facility] Post-op Instructions. Once postoperative dressing has been removed only use gentle soap and water over the incision. Do not use any ointments, Neosporin, salves, alcohol pads over the incision for 6 weeks postoperatively. Do not submerge underwater for 6 weeks postoperatively. Do NOT use alcohol with narcotic pain medication. Do NOT make important decisions while taking narcotic medication. If you have problems with taking your medication (rash, itching, nausea, etc.) call the office at once. Follow Up Care Test Results: Test results from this visit will be discussed in further detail at your follow- up appointment, if applicable. Discharge Plan Admission Admit Date/Time: 04/11/22 07:20 Attending Provider: Abiodun Osorio Primary Care Provider: Felicita Kemp Consulting Providers: Kaylen Marroquin Discharge Orders/Prescriptions Prescriptions: New aspirin 325 mg Tablet 325 mg PO BID Qty: 0 0RF Rx Instructions: Take 325 mg aspirin twice daily for 2 weeks postoperatively for DVT prophylaxis. acetaminophen 500 mg Tablet 1,000 mg PO Q8 14 Days Qty: 84 0RF Rx Instructions: Do not take more than 3000 mg Tylenol in a 24-hour period. doxycycline monohydrate 100 mg Capsule 100 mg PO BID 14 Days Qty: 28 0RF oxycodone 5 mg Tablet 5 - 10 mg PO Q4H PRN PRN (Reason: Pain Score 4-10) 5 Days Qty: 42 0RF sennosides-docusate sodium [Stool Softener-Stimulant Laxat] 8.6-50 mg Tablet 2 tab PO BID Qty: 0 0RF Rx Instructions: Take until first bowel movement, then as needed Continued lisinopril-hydrochlorothiazide 20-12.5 mg tablet 1 tab PO DAILY Label Comments: TAKE 1 TABLET BY MOUTH EVERY DAY metoprolol succinate 50 mg tablet extended release 24 hr 50 mg PO BID Label Comments: TAKE 1 TABLET BY MOUTH TWICE A DAY sertraline 100 MG tablet 100 mg PO DAILY Label Comments: DEPRESSION tamsulosin [Flomax] 0.4 mg Capsule 0.4 mg PO BID Discontinued aspirin 325 MG tablet,delayed release (DR/EC) 325 mg PO DAILY Label Comments: WAS TOLD TO STOP STOP FOR PROCEDURE Referrals / Follow Up: Physical,Therapy [Other] - 04/26/22 1:00 pm Felicita Kemp DO [Primary Care Provider] - Eddie Coats PA-C [Med Staff - [facility]] - 04/27/22 10:30 am Disposition Disposition (needs filled in before D/C Order can be placed): Home, Self Care
[2022-04-12 12:37] VITALS: BP 112/57; PULSE 79; RESP 18; TEMP 37.2; O2SAT 95
== END 2022-04-12 13:07 | disposition home or self-care (01) ==
LOC: SDC 10:45 → MS3 10:45
PROVIDERS: Anesthesiology; Admitting Provider Specialist; Referring Provider Specialist; Visit Provider Specialist
PROC: (CPT 23472; principal; 2022-04-11 07:30)
DX: M19.012 Primary osteoarthritis, left shoulder (principal); I48.0 Paroxysmal atrial fibrillation; I48.92 Unspecified atrial flutter; E66.01 Morbid (severe) obesity due to excess calories; Z68.42 Body mass index [BMI] 45.0-49.9, adult; E78.5 Hyperlipidemia, unspecified; N40.0 Benign prostatic hyperplasia without lower urinary tract symptoms; F41.9 Anxiety disorder, unspecified; I10 Essential (primary) hypertension; F32.A Depression, unspecified; Z79.899 Other long term (current) drug therapy; Z79.82 Long term (current) use of aspirin; M75.102 Unspecified rotator cuff tear or rupture of left shoulder, not specified as traumatic
CPT/HCPCS: 23472; 01638; 64415; 36415; 73030; 80048; 82040; 82962; 83036; 83735; 85025; 85027; 87081; 88305; 88311; 93005; 96365; 96366; 97166; 99221; 99252; C1776; J7040; J7120; A4216; G0378; G0463; J2405; J3475